=== PATIENT | male | born 1960 | race Caucasian/White ===

== ENCOUNTER 2024-10-11 15:01 | Inpatient (IN) ==
[2024-10-11] MEDS: ONDANSETRON INJ 2 MG/ML 2 ML VIAL IV STA (15:32)
[2024-10-11 15:43] LABS: Basophils # (auto) 0.02 K/uL (0.00-0.20); Basophils % (auto) 0.1 %; Eosinophils # (auto) 0.01 K/uL (0.00-0.50); Eosinophils % (auto) 0.1 %; Hematocrit (blood only) 45.8 % (42.0-52.0); Hemoglobin 15.1 g/dl (14.0-18.0); Immature Granulocytes # (auto) 0.05 K/uL (0.01-0.20); Immature Granulocytes % (auto) 0.3 %; Lymphocytes % (auto) 7.6 %; Mean Corpuscular Hemoglobin 29.5 pg (25.0-34.0); Mean Corpuscular Volume 89.6 fL (80.0-100.0); Mean Platelet Volume 10.9 fL (9.4-12.4); Monocytes # (auto) 0.83 K/uL (0.11-0.59); Monocytes % (auto) 5.3 %; Neutrophils # (auto) 13.59 K/uL (1.40-6.50); Neutrophils % (auto) 86.6 %; Platelet Count 182 K/uL (130-400); RDW Coefficient of Variation 13.5 % (11.5-14.5); RDW Standard Deviation 44.1 fL (36.4-46.3); Red Blood Count 5.11 M/uL (4.70-6.10)
[2024-10-11] MEDS: ONDANSETRON INJ 2 MG/ML 2 ML VIAL ONE (15:46)
[2024-10-11 16:08] LABS: Alanine Aminotransferase 15 U/L (7-52); Albumin Globulin Ratio 1.4 (0.9-2); Albumin Level 4.2 gm/dl (3.4-5.0); Alkaline Phosphatase 67 U/L (34-104); Anion Gap 12 (3-11); Aspartate Aminotransferase 25 U/L (13-39); Blood Urea Nitrogen 33 mg/dl (6-23); Calcium 9.6 mg/dl (8.6-10.3); Carbon Dioxide 30 mmol/L (21-32); Chloride 97 mmol/L (98-107); Globulin 2.9 gm/dl (2.5-4.0); Glucose 113 mg/dl (70-99(Fasting)); Lipase 24 U/L (11-82); Potassium 4.1 mmol/L (3.5-5.1); Sodium 139 mmol/L (136-145); Total Protein 7.1 gm/dl (6.0-8.3)
--- NOTE | 2024-10-11 16:14 | XRay Report ---
XR chest 1V portable HISTORY: 64 years-old Male pain/hiccups acute chest pain COMPARISON: 12/08/2023 TECHNIQUE: AP view of the chest FINDINGS: Cardiac silhouette is normal in size. Mild subsegmental left basilar scarring versus atelectasis. No pneumothorax or pleural effusion. Bones appear grossly intact. IMPRESSION: No acute process. ACT 112: Negative or not required by law. The above report was generated using voice recognition software. It may contain grammatical, syntax o r spelling errors. Electronically signed by: Evelio Alford M.D. 10/11/2024 4:13 PM
[2024-10-11] MEDS: FAMOTIDINE 20MG IV PUSH 20 MG/5 ML SYR IV STA (17:51)
[2024-10-11] MEDS: ACETAMINOPHEN 1,000 MG/100 ML VIAL IV STA (17:51)
[2024-10-11] MEDS: diphenhydrAMINE 50 MG/ML VIAL IV STA (17:51)
[2024-10-11] MEDS: SODIUM CHLORIDE 0.9% 500 ML IV ONE ×2 (17:51→20:37)
[2024-10-11] MEDS: METOCLOPRAMIDE HCL INJ 5 MG/ML 2 ML VIAL IV ONE (17:51)
--- NOTE | 2024-10-11 17:58 | Emergency Department Note ---
Impression & Plan Hiccups, RANDEE (acute kidney injury), S/P ureteral stent placement ED Provider Note NAME: TAHIAR OLIVER AGE: 64 SEX: M : 1960 ARRIVES VIA: Walk-In INFORMANT: Patient ED PROVIDER(S): Mark Billy MD CHIEF COMPLAINT: Hiccups PLAN: Disposition: Admit MEDICAL DECISION MAKING: The patient is a pleasant 64-year-old gentleman with a past medical history of migraine headaches, GERD, nephrolithiasis with recent outpatient right ureteral stent placement who presents to the emergency department for evaluation of ongoing intractable hiccups since his procedure yesterday. He reports that he has had poor oral intake due to the persistence of these hiccups which have not improved with any attempts at breath-holding or drinking cold water. He reports his pain and discomfort relates more to the recurrent hiccups than his stent placement yesterday. He denies any fevers, chills, cough, congestion, chest pain or shortness of breath. Of note, the patient did arrive to emergency department during time of high volume, acuity and prolonged emergency department waiting times. Critical pathways initiated from triage. On evaluation the patient is uncomfortable in no distress, afebrile with heart in the 90s and blood pressure 120/70s but respiratory rate in the upper 20s due to intractable hiccups. Abdomen is nontender. WBC 15.7 K with neutrophilia but no left shift, nonspecific. H/H and platelets within normal limits. Chemistry without metabolic acidosis. Creatinine is 2.06 consistent with RANDEE in the setting of the patient's poor oral intake. LFTs are unremarkable. Lipase is normal. Patient was treated with IV fluid hydration, IV famotidine, diphenhydramine, Reglan and had subsequent improvement in his intractable hiccups though still somewhat present. We did review his acute kidney injury and he agrees with plan for admission for further management. Case was discussed with Dr. Bearden, [facility] hospitalist who will evaluate the patient for admission. Further management per admitting team. Triage Nursing notes reviewed and agree them. Prior/external medical records reviewed Vital Signs: reviewed Differential diagnosis: Gastroenteritis, food borne illness, infections, appendicitis, diverticulitis, inflammatory bowel disease, obstruction, GI bleed, biliary pathology, volvulus, as well as other pathologies. ER treatment provided: See below. Diagnostics interpreted by me: Cardiac Monitoring: An order for continuous cardiac monitoring was placed and demonstrated normal sinus rhythm, 98 bpm, no ectopy. Laboratory studies: See below Imaging studies: See below Consultation(s): Case was discussed with Dr. Bearden, [facility] Hospitalist who will evaluate the patient for admission. HPI: The patient is a pleasant 64-year-old gentleman with a past medical history of migraine headaches, GERD, nephrolithiasis with recent outpatient right ureteral stent placement who presents to the emergency department for evaluation of ongoing intractable hiccups since his procedure yesterday. He reports that he has had poor oral intake due to the persistence of these hiccups which have not improved with any attempts at breath-holding or drinking cold water. He reports his pain and discomfort relates more to the recurrent hiccups than his stent placement yesterday. He denies any fevers, chills, cough, congestion, chest pain or shortness of breath. ROS: See above HPI for pertinent positives & negatives. A total of 10 systems reviewed and were otherwise negative. VITALS:See Below PHYSICAL EXAMINATION: GENERAL: Awake, alert, uncomfortable-appearing, intractable hiccups. Normal sinus rhythm, 90 bpm, no ectopy. HENT: Normocephalic, atraumatic. Oropharynx with dry mucous membranes and otherwise unremarkable. EYES: Normal conjunctiva. Sclera non-icteric. NECK: Supple. No nuchal rigidity. FROM. No JVD. RESPIRATORY: Clear to auscultation. CARDIAC: Regular rate, normal rhythm. Extremities warm and well perfused. Pulses equal. ABDOMEN: Soft, non-distended. No tenderness to palpation. No rebound or guarding. No masses. MUSCULOSKELETAL: Chest examination reveals no tenderness. The back is symmetrical on inspection without obvious abnormality. There is no CVA tenderness to palpation. No joint edema. LOWER EXTREMITIES: Calves are equal size bilaterally and non-tender. No edema. No discoloration. NEURO: Normal sensorium. No sensory or motor deficits noted. SKIN: No rash or jaundice noted. Mark Billy MD Past Med/Surg History Problem List (Updated 10/12/24 @ 15:34 by Mark Billy MD) S/P ureteral stent placement (Acute) History of ureteroscopy Hiccups (Acute) RANDEE (acute kidney injury) (Acute) Elevated PSA Nephrolithiasis BPH w urinary obs/LUTS Cephalgia (Acute) Migraine (Chronic) Headache (Acute) History of appendectomy (Chronic) Medical History (Updated 10/12/24 @ 12:53 by Giulia Luna PA-C) TMJ (temporomandibular joint disorder) "I have had a problem with keeping my mouth open for long periods of time. It locks" Heart burn Hx of hepatitis "mild kind as a child - no traces in my blood" unsure of type History of anemia Hx of seizure disorder as a child - no problems since Cough chronic - started 10/2023 - has completed testing / no current answers or dx Nephrolithiasis Migraines BPH (benign prostatic hyperplasia) Surgical History (Updated 10/12/24 @ 15:34 by Mark Billy MD) Hx of wisdom tooth extraction Hx of left knee surgery Hx of colonoscopy History of appendectomy Family History Other No significant family history Social History Smoking Status: Never smoker Second Hand Exposure: No; Do You Dip or Chew Tobacco: No; Hx Alcohol Use: No Hx Substance Use: No Preferred Language: Kazakh Communication Ability: Effective Business Asst Required: No Beliefs That Will Affect Care: None marital status: Current Living Situation: Spouse current occupational status: employed 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 Feels Safe at Home: Yes Safety Concerns: Feels Safe At This Time Assistive Devices: Glasses Allergies Allergies Allergy/AdvReac Type Severity Reaction Status Date / Time No Known Allergies Allergy Verified 10/10/24 10:31 Home Meds Home Medications Medication Instructions Recorded Confirmed sumatriptan succinate 100 mg 100 mg PO DAILY PRN Migraine 01/09/21 10/11/24 tablet (Imitrex) Headache galcanezumab-gnlm 120 mg/mL 120 mg subcut MONTHLY 12/08/23 10/11/24 subcutaneous pen injector (Emgality Pen) promethazine-DM 6.25 mg-15 mg/5 mL 5 ml PO QID PRN Cough 12/08/23 10/11/24 oral syrup Saccharomyces boulardii 250 mg 250 mg PO DAILY PRN Upset Stomach 10/03/24 10/11/24 capsule (Florastor) aspirin 325 mg tablet 325 mg PO DAILY 10/03/24 10/11/24 tamsulosin 0.4 mg capsule (Flomax) 0.4 mg PO HS 10/03/24 10/11/24 omeprazole 40 mg capsule,delayed 40 mg PO DAILYBB 10/11/24 10/11/24 release Previous Rx's Medication Instructions Recorded ciprofloxacin HCl 500 mg tablet 500 mg PO Q12H #6 tabs 10/10/24 (Cipro) oxycodone-acetaminophen 7.5 mg-325 1 tab PO Q8H PRN pain 3 days #7 10/10/24 mg tablet (Percocet) tabs phenazopyridine 200 mg tablet 200 mg PO Q8H PRN pain #10 tabs 10/10/24 (Pyridium) Results & Data (ED) Vital Signs Vital Signs - 24 hr 10/11/24 15:33 10/11/24 16:48 10/11/24 17:03 Pulse Rate 83 80 83 Pulse Rate [Apical] Respiratory Rate 17 15 17 Blood Pressure [Left Arm] Blood Pressure Mean [Left Arm] Pulse Oximetry Oxygen Delivery Method 10/11/24 18:05 10/11/24 19:15 10/11/24 20:03 Pulse Rate 98 H Pulse Rate [Apical] 83 97 H Respiratory Rate 20 18 Blood Pressure [Left Arm] 139/80 Blood Pressure Mean [Left Arm] 99 Pulse Oximetry 98 93 Oxygen Delivery Method Room Air Laboratory Data Attestation: I reviewed the patient's lab results. 10/12/24 06:59 10/12/24 06:59 Lab Results 10/11/24 10/11/24 Range/Units 15:17 20:39 WBC 15.70 H (4.8-10.8) K/ul RBC 5.11 (4.70-6.10) M/uL Hgb 15.1 (14.0-18.0) g/dl Hct 45.8 (42.0-52.0) % MCV 89.6 (80.0-100.0) fL MCH 29.5 (25.0-34.0) pg MCHC 33.0 (32.0-36.0) g/dL RDW Std Deviation 44.1 (36.4-46.3) fL RDW Coeff of Homero 13.5 (11.5-14.5) % Plt Count 182 (130-400) K/uL MPV 10.9 (9.4-12.4) fL Immature Gran % (Auto) 0.3 % Neut % (Auto) 86.6 % Lymph % (Auto) 7.6 % [place] % (Auto) 5.3 % Eos % (Auto) 0.1 % Baso % (Auto) 0.1 % Neut # (Auto) 13.59 H (1.40-6.50) K/uL Lymph # (Auto) 1.20 (1.20-3.40) K/uL [place] # (Auto) 0.83 H (0.11-0.59) K/uL Eos # (Auto) 0.01 (0.00-0.50) K/uL Baso # (Auto) 0.02 (0.00-0.20) K/uL Immature Gran # (Auto) 0.05 (0.01-0.20) K/uL Sodium 139 (136-145) mmol/L Potassium 4.1 (3.5-5.1) mmol/L Chloride 97 L (98-107) mmol/L Carbon Dioxide 30 (21-32) mmol/L Anion Gap 12 H (3-11) BUN 33 H (6-23) mg/dl Creatinine 2.06 H (0.6-1.4) mg/dl Est Cr Clr Drug Dosing Not Reportable eGFR 35.75 BUN/Creatinine Ratio 16.0 (10-20) Glucose 113 H (70-99(Fasting)) mg/dl Estimat Average Glucose 111 mg/dl Hemoglobin A1c 5.5 (4.5-5.6) % Calcium 9.6 (8.6-10.3) mg/dl Magnesium 2.2 (1.7-2.4) mg/dl Total Bilirubin 1.0 (0.2-1.0) mg/dl AST 25 (13-39) U/L ALT 15 (7-52) U/L Alkaline Phosphatase 67 (34-104) U/L Total Protein 7.1 (6.0-8.3) gm/dl Albumin 4.2 (3.4-5.0) gm/dl Globulin 2.9 (2.5-4.0) gm/dl Albumin/Globulin Ratio 1.4 (0.9-2) Lipase 24 (11-82) U/L Administered Medications Acetaminophen (Acetaminophen 500 Mg Tab) 1,000 mg PO Q8H [facility] Stop: 11/11/24 13:59 Last Admin: 10/12/24 14:10 Dose: 1,000 mg Documented By: SYLVIA Heparin Sodium (Porcine) (Heparin Sod 5,000 Unit/0.5 Ml Vial) 5,000 units SQ Q8 LION Stop: 11/11/24 13:59 Last Admin: 10/12/24 14:57 Dose: Not Given Documented By: SYLVIA Hydromorphone HCl (Hydromorphone Inj 0.5 Mg/0.5 Ml Syr) 0.5 mg IV Q4H PRN PRN Reason: Pain Stop: 10/25/24 23:06 Last Admin: 10/12/24 10:38 Dose: 0.5 mg Documented By: SYLVIA Ceftriaxone Sodium (Rocephin) 2,000 mg in 50 mls @ 100 mls/hr IV Q24H [facility] Stop: 10/22/24 04:59 Last Infusion: 10/12/24 06:14 Dose: Infused Documented By: Admin: 10/12/24 05:28 Dose: 100 mls/hr Documented By: ASAF Lorazepam (Lorazepam 0.5 Mg Tab) 0.5 mg PO TID PRN PRN Reason: Anxiety Stop: 11/10/24 21:39 Last Admin: 10/12/24 09:33 Dose: 0.5 mg Documented By: SYLVIA Metoclopramide HCl (Metoclopramide Hcl Inj 5 Mg/Ml 2 Ml Vial) 5 mg IV Q6H PRN PRN Reason: Nausea Stop: 11/10/24 23:29 Last Admin: 10/12/24 09:34 Dose: 5 mg Documented By: SYLVIA Oxycodone HCl (Oxycodone Hcl Ir 5 Mg Tab (Immediate Release)) 5 mg PO Q4H PRN PRN Reason: Pain Stop: 10/25/24 23:06 Last Admin: 10/12/24 12:16 Dose: 5 mg Documented By: Admin: 10/12/24 03:14 Dose: 5 mg Documented By: ASAF Pantoprazole Sodium (Pantoprazole 40 Mg Tab) 40 mg PO DAILYBB [facility] Stop: 11/11/24 06:29 Last Admin: 10/12/24 05:28 Dose: 40 mg Documented By: ASAF Sumatriptan Succinate (Sumatriptan Succinate 100 Mg Tab) 100 mg PO DAILY PRN PRN Reason: Migraine Headache Stop: 11/11/24 09:19 Last Admin: 10/12/24 14:28 Dose: 100 mg Documented By: Admin: 10/12/24 10:36 Dose: 100 mg Documented By: SYLVIA Discontinued Medications Baclofen (Baclofen 10 Mg Tab) 5 mg PO NOW STA Stop: 10/11/24 23:46 Last Admin: 10/12/24 00:04 Dose: 5 mg Documented By: ASAF Diphenhydramine HCl (Diphenhydramine 50 Mg/Ml Vial) 12.5 mg IV NOW STA Stop: 10/11/24 17:40 Last Admin: 10/11/24 17:51 Dose: 12.5 mg Documented By: FINA Sodium Chloride (Nss) 500 mls @ 999 mls/hr IV .Q31M ONE Stop: 10/11/24 18:09 Last Infusion: 10/11/24 18:24 Dose: Infused Documented By: Admin: 10/11/24 17:51 Dose: 999 mls/hr Documented By: FINA Famotidine (Pepcid 20mg Iv Push) 20 mg in 5 mls @ 2.5 mls/min IV NOW STA Stop: 10/11/24 17:40 Last Admin: 10/11/24 17:51 Dose: 2.5 mls/min Documented By: FINA Acetaminophen (Ofirmev) 1,000 mg in 100 mls @ 400 mls/hr IV NOW STA Stop: 10/11/24 17:57 Last Infusion: 10/11/24 18:24 Dose: Infused Documented By: Admin: 10/11/24 17:51 Dose: 400 mls/hr Documented By: FINA Sodium Chloride (Nss) 500 mls @ 999 mls/hr IV .Q31M ONE Stop: 10/11/24 20:55 Last Admin: 10/11/24 20:37 Dose: Not Given Documented By: RICO Lactated Ringer's (Lr) 1,000 mls @ 200 mls/hr IV .Q5H ONE Stop: 10/12/24 01:34 Last Infusion: 10/12/24 07:09 Dose: Infused Documented By: Admin: 10/11/24 21:08 Dose: 100 mls/hr Documented By: RICO Lactated Ringer's (Lr) 1,000 mls @ 100 mls/hr IV .Q10H ONE Stop: 10/12/24 12:59 Last Infusion: 10/12/24 13:47 Dose: Infused Documented By: Infusion: 10/12/24 10:05 Dose: 100 mls/hr Documented By: Infusion: 10/12/24 09:30 Dose: 0 mls/hr Documented By: Admin: 10/12/24 03:09 Dose: 100 mls/hr Documented By: ASAF Metoclopramide HCl (Metoclopramide Hcl Inj 5 Mg/Ml 2 Ml Vial) 5 mg IV ONE ONE Stop: 10/11/24 17:40 Last Admin: 10/11/24 17:51 Dose: 5 mg Documented By: FINA Metoclopramide HCl (Metoclopramide Hcl Inj 5 Mg/Ml 2 Ml Vial) 5 mg IV ONE STA Stop: 10/11/24 21:46 Last Admin: 10/11/24 23:01 Dose: 5 mg Documented By: ASAF Morphine Sulfate (Morphine Sulfate 2 Mg/Ml Carp) 2 mg IV Q2H PRN PRN Reason: pain Stop: 10/25/24 20:49 Last Admin: 10/11/24 21:02 Dose: 2 mg Documented By: RICO Ondansetron HCl (Ondansetron Inj 2 Mg/Ml 2 Ml Vial) 4 mg IV NOW STA Stop: 10/11/24 15:32 Last Admin: 10/11/24 15:32 Dose: 4 mg Documented By: FINA Ondansetron HCl (Ondansetron Inj 2 Mg/Ml 2 Ml Vial) Confirm Administered Dose 4 mg .ROUTE .STK-MED ONE Stop: 10/11/24 15:32 Last Admin: 10/11/24 15:46 Dose: Not Given Documented By: FINA Sucralfate (Sucralfate 1 Gm/10 Ml Udc) 1 gm PO NOW STA Stop: 10/11/24 20:26 Last Admin: 10/11/24 20:35 Dose: 1 gm Documented By: RICO Sumatriptan Succinate (Sumatriptan Succinate 50 Mg Tab) 50 mg PO NOW STA Stop: 10/12/24 00:11 Last Admin: 10/12/24 00:29 Dose: 50 mg Documented By: HJ Imaging Data Radiologist's Impression: Chest X-Ray 10/11/24 15:43 XR chest 1V portable HISTORY: 64 years-old Male pain/hiccups acute chest pain COMPARISON: 12/08/2023 TECHNIQUE: AP view of the chest FINDINGS: Cardiac silhouette is normal in size. Mild subsegmental left basilar scarring versus atelectasis. No pneumothorax or pleural effusion. Bones appear grossly intact. IMPRESSION: No acute process. ACT 112: Negative or not required by law. The above report was generated using voice recognition software. It may contain grammatical, syntax or spelling errors. Electronically signed by: Evelio lAford M.D. 10/11/2024 4:13 PM Discharge Plan Visit Data Chief Complaint: Illness Stated Complaint: HICCUPS, SURG YESTERDAY, KIDNEY STONE, MIGRAINE ED Provider: Mark Billy Discharge Problem: Hiccups, RANDEE (acute kidney injury), S/P ureteral stent placement Patient Disposition: Admitted As Inpatient Discharge Instructions Interventions: ED Discharge Assessment Last Done: 10/11/24 21:55
[2024-10-11] MEDS: SUCRALFATE 1 GM/10 ML UDC PO STA (20:35)
--- NOTE | 2024-10-11 20:41 | History & Physical Report ---
Date of Service October 11, 2024 Assessment & Plan (1) RANDEE (acute kidney injury): (2) Hiccups: (3) History of ureteroscopy: (4) Nephrolithiasis: (5) BPH w urinary obs/LUTS: (6) Elevated PSA: (7) Migraine: Plan: HPI, ROS, PE completed by myself, Solange Toro PA-C Assessment and Plan per Dr Bearden. See addendum History of Present Illness Chief Complaint: hiccups Primary Care Provider: Xavi Perkins MD Patient is 64 year old male with PMH BPH, elevated PSA, kidney stones, migraine VILLALBA on Emgality presented to ER with c/o hiccups and right flank pain. On 10/10/2024 s/p cystoscopy, right ureteronephroscopy, laser destruction stone insertion stent by Dr. Palacio. Patient states postop had hiccups which caused increased right flank pain. He was also having dysuria. Patient reports discharged home. He reports hiccups continued and every time he hiccups it causes sharp pain to right flank and right lower quadrant pain and still having dysuria. Reports pain not controlled with oxycodone. Patient states when he hiccups so many times he feels like he can't catch his breath. He reports hematuria has started to slow since yesterday. Patient reports having chills but did not recorded temperature at home.Reports is drinking fluids however has not been eating past 24 hours. States nausea without vomiting. Per outpatient chart review had telemedicine PCP visit on 09/23/24 for cough x 2 weeks and was treated with prednisone taper in which he reports cough improved. Denies fever/chills, diaphoresis, diarrhea, VILLALBA, dizziness, CP, palpitations, rhinorrhea, extremity weakness, extremity edema, rashes. Allergies Allergy/AdvReac Type Severity Reaction Status Date / Time No Known Allergies Allergy Verified 10/10/24 10:31 Home Medications Medication Instructions Recorded Confirmed Type sumatriptan succinate 100 mg 100 mg PO DAILY PRN Migraine 01/09/21 10/11/24 History tablet (Imitrex) Headache galcanezumab-gnlm 120 mg/mL 120 mg subcut MONTHLY 12/08/23 10/11/24 History subcutaneous pen injector (Emgality Pen) promethazine-DM 6.25 mg-15 mg/5 mL 5 ml PO QID PRN Cough 12/08/23 10/11/24 History oral syrup Saccharomyces boulardii 250 mg 250 mg PO DAILY PRN Upset Stomach 10/03/24 10/11/24 History capsule (Florastor) aspirin 325 mg tablet 325 mg PO DAILY 10/03/24 10/11/24 History tamsulosin 0.4 mg capsule (Flomax) 0.4 mg PO HS 10/03/24 10/11/24 History ciprofloxacin HCl 500 mg tablet 500 mg PO Q12H #6 tabs 10/10/24 10/11/24 Rx (Cipro) oxycodone-acetaminophen 7.5 mg-325 1 tab PO Q8H PRN pain 3 days #7 10/10/24 10/11/24 Rx mg tablet (Percocet) tabs phenazopyridine 200 mg tablet 200 mg PO Q8H PRN pain #10 tabs 10/10/24 10/11/24 Rx (Pyridium) omeprazole 40 mg capsule,delayed 40 mg PO DAILYBB 10/11/24 10/11/24 History release Past Med/Surg History Problem List History of ureteroscopy Hiccups (Acute) RANDEE (acute kidney injury) (Acute) Encounter for pre-operative examination Elevated PSA Nephrolithiasis BPH w urinary obs/LUTS Cephalgia (Acute) Migraine (Chronic) Headache (Acute) History of appendectomy (Chronic) Medical History TMJ (temporomandibular joint disorder) "I have had a problem with keeping my mouth open for long periods of time. It locks" Heart burn Hx of hepatitis "mild kind as a child - no traces in my blood" unsure of type History of anemia Hx of seizure disorder as a child - no problems since Cough chronic - started 10/2023 - has completed testing / no current answers or dx Nephrolithiasis Migraines BPH (benign prostatic hyperplasia) Surgical History Hx of wisdom tooth extraction Hx of left knee surgery Hx of colonoscopy History of appendectomy Family History Other No significant family history Social History Smoking Status: Never smoker Second Hand Exposure: No; Do You Dip or Chew Tobacco: No; Hx Alcohol Use: No Hx Substance Use: No Preferred Language: Slovenian Communication Ability: Effective Funeral Arranger Required: No Beliefs That Will Affect Care: None marital status: Current Living Situation: Spouse current occupational status: employed 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 no hiccpups at time of exam CV: RRR, no murmur, no pretibial edema Abd: normal BS, soft,+tenderness palpation right flank, RLQ Ext: no cyanosis, no calf tenderness Neuro: A&O x 3, no focal deficits noted, somewhat anxious affect Skin: warm, sweaty Results & Data Results & Data Vital Signs (Past 12 Hours) Vital Signs Temp Pulse Pulse Resp BP BP Pulse Ox 10/11/24 20:03 97 H 18 139/80 93 10/11/24 19:15 98 H 10/11/24 18:05 83 20 98 10/11/24 17:03 83 17 10/11/24 16:48 80 15 10/11/24 15:33 83 17 10/11/24 15:15 82 16 10/11/24 15:15 78 10/11/24 15:04 36.9 C 94 H 28 H 129/79 97 O2 Del Method 10/11/24 20:03 10/11/24 19:15 10/11/24 18:05 Room Air 10/11/24 17:03 10/11/24 16:48 10/11/24 15:33 10/11/24 15:15 10/11/24 15:15 10/11/24 15:04 Room Air Laboratory Results Short CBC 10/11/24 Range/Units 15:17 WBC 15.70 H (4.8-10.8) K/ul Hgb 15.1 (14.0-18.0) g/dl Hct 45.8 (42.0-52.0) % Plt Count 182 (130-400) K/uL BMP 10/11/24 15:17 Sodium 139 Potassium 4.1 Chloride 97 L Carbon Dioxide 30 BUN 33 H Creatinine 2.06 H Glucose 113 H Calcium 9.6 Liver Function 10/11/24 Range/Units 15:17 Total Bilirubin 1.0 (0.2-1.0) mg/dl AST 25 (13-39) U/L ALT 15 (7-52) U/L Alkaline Phosphatase 67 (34-104) U/L Albumin 4.2 (3.4-5.0) gm/dl Diagnostic Findings Chest X-Ray 10/11/24 15:43 XR chest 1V portable HISTORY: 64 years-old Male pain/hiccups acute chest pain COMPARISON: 12/08/2023 TECHNIQUE: AP view of the chest FINDINGS: Cardiac silhouette is normal in size. Mild subsegmental left basilar scarring versus atelectasis. No pneumothorax or pleural effusion. Bones appear grossly intact. IMPRESSION: No acute process. ACT 112: Negative or not required by law. The above report was generated using voice recognition software. It may contain grammatical, syntax or spelling errors. Electronically signed by: Evelio Alford M.D. 10/11/2024 4:13 PM Supervising Physician Co-Signing Physician Notes IM ATTENDING : Patient seen and examined. History obtained from patient and records. Concur with salient points upon review of preceding documentation by Ms. Solange Toro PA-C. I take responsibility for plan of care below. FINAL ASSESSMENT AND PLAN as follows : ARF, AGMA secondary to decreased p.o. intake secondary to postop hiccups History kidney stone procedure Rule out obstruction given vague abdominal/flank pain complaints Hematuria secondary to above, hemoglobin currently stable Migraine, acute attack secondary to illness PUD, on PPI Hyperglycemia rule out DM Medical admission Baseline UA, monitor creatinine response to IVF CT abdomen pelvis re: ARF/abdominal/flank pain Urology postop eval as per patient request Check hemoglobin A1c DVT prophylaxis. SCDs Re: Hematuria Full code Text document was generated using [employer] voice recognition software. It may contain grammatical or spelling errors. Kindly contact undersigned for clarification of any documentation item in question. (7) Migraine Intractability: intractable Migraine type: unspecified Status migrainosus presence: with status migrainosus Qualified Code(s): G43.911 - Migraine, unspecified, intractable, with status migrainosus
[2024-10-11 20:55] LABS: Magnesium 2.2 mg/dl (1.7-2.4)
[2024-10-11] MEDS: MoRPHine SULFATE 2 MG/ML CARP IV PRN (21:02)
[2024-10-11] MEDS: LACTATED RINGER'S 1,000 ML IV ONE (21:08)
[2024-10-11 21:36] LABS: Estimated Average Glucose 111 mg/dl; Hemoglobin A1C 5.5 % (4.5-5.6)
[2024-10-11] MEDS ORDERED: ACETAMINOPHEN 325 MG TAB PO PRN (23:00)
[2024-10-11] MEDS: METOCLOPRAMIDE HCL INJ 5 MG/ML 2 ML VIAL IV STA (23:01)
[2024-10-12] MEDS: BACLOFEN 10 MG TAB PO STA (00:04)
[2024-10-12] MEDS: SUMAtriptan succinate 50 MG TAB PO STA (00:29)
--- NOTE | 2024-10-12 03:05 | CT Scan Report ---
Exam(s): CT ABDOMEN + PELVIS Without Contrast EXAM: CT Abdomen and Pelvis Without Intravenous Contrast CLINICAL HISTORY: Reason for exam: abd pain. TECHNIQUE: Axial computed tomography images of the abdomen and pelvis without intravenous contrast. CTDI is 25 mGy and DLP is 1290 mGy-cm. Automated exposure control was utilized for the study. A dose lowering technique was utilized adhering to the principles of ALARA. COMPARISON: No relevant prior studies available. FINDINGS: Limitations: Limited evaluation in the absence of contrast. Lung bases: Mild dependent scarring at the lung bases. No consolidation. ABDOMEN: Liver: Unremarkable. Gallbladder and bile ducts: Unremarkable. No calcified stones. No ductal dilation. Pancreas: Unremarkable. No ductal dilation. Spleen: Unremarkable. No splenomegaly. Adrenals: Unremarkable. No mass. Kidneys and ureters: Patient status post right double-J ureteral stent with proximal coil in the right renal pelvis and distal coil in the bladder. Gas noted in the right renal collecting system and within the bladder which may be postprocedural in nature. Additional prominent right perinephric and periureteral stranding noted. Findings may be postprocedural in nature. Infection also possible. Stomach and bowel: Unremarkable. No obstruction. No mucosal thickening. PELVIS: Appendix: No findings to suggest acute appendicitis. Bladder: Within the bladder as described. Reproductive: Prostatic calcifications with prostatomegaly. ABDOMEN and PELVIS: Intraperitoneal space: Unremarkable. No free air. No significant fluid collection. Bones/joints: Degenerative changes in the spine. No acute fracture. No dislocation. Soft tissues: Left inguinal hernia containing fat. Umbilical hernia containing fat. Vasculature: Unremarkable. No abdominal aortic aneurysm. Lymph nodes: Unremarkable. No enlarged lymph nodes. IMPRESSION: 1. Limited evaluation in the absence of contrast. 2. Patient status post right double-J ureteral stent with proximal coil in the right renal pelvis and distal coil in the bladder. Gas noted in the right renal collecting system and within the bladder which may be postprocedural in nature. Additional prominent right perinephric and periureteral stranding noted. Findings may be postprocedural in nature. Infection also possible. 3. No other acute findings. 4. Incidental findings as described. Electronically signed by: Vamsi Mcgregor MD 10/12/24 03:04 AM
[2024-10-12] MEDS: LACTATED RINGER'S 1,000 ML IV ONE (03:09)
[2024-10-12] MEDS: oxyCODONE HCL IR 5 MG TAB (IMMEDIATE RELEASE) PO PRN (03:14)
[2024-10-12 03:36] LABS: Appearance Urine Cloudy (Clear)
[2024-10-12 03:43] LABS: Specific Gravity Urine 1.022 (1.000-1.030)
[2024-10-12 03:49] LABS: RBC Urine >20 /hpf (0-2); WBC Urine >50 /hpf (0-5)
[2024-10-12 03:50] LABS: Bacteria Urine None Seen (None Seen)
[2024-10-12] MEDS: PANTOprazole 40 MG TAB PO SCH (05:28)
[2024-10-12] MEDS: cefTRIAXone SODIUM 2,000 MG/50 ML BAG IV SCH (05:28)
[2024-10-12 07:24] LABS: HCO3 VBG 29 mmol/L; Oxygen Saturation VBG 62.4 %; PCO2 VBG 52 mmHg (38-50); PO2 VBG 36 mmHg; pH VBG 7.36 (7.36-7.41)
[2024-10-12 07:26] LABS: Basophils # (auto) 0.03 K/uL (0.00-0.20); Basophils % (auto) 0.2 %; Eosinophils # (auto) 0.03 K/uL (0.00-0.50); Eosinophils % (auto) 0.2 %; Hematocrit (blood only) 38.8 % (42.0-52.0); Hemoglobin 12.3 g/dl (14.0-18.0); Immature Granulocytes # (auto) 0.32 K/uL (0.01-0.20); Lymphocytes # (auto) 1.56 K/uL (1.20-3.40); Lymphocytes % (auto) 9.6 %; Mean Corpuscular Hemoglobin 29.6 pg (25.0-34.0); Mean Corpuscular Hgb Conc 31.7 g/dL (32.0-36.0); Mean Corpuscular Volume 93.5 fL (80.0-100.0); Mean Platelet Volume 10.9 fL (9.4-12.4); Monocytes # (auto) 1.31 K/uL (0.11-0.59); Monocytes % (auto) 8.1 %; Neutrophils # (auto) 12.96 K/uL (1.40-6.50); Neutrophils % (auto) 79.9 %; Platelet Count 150 K/uL (130-400); RDW Coefficient of Variation 13.5 % (11.5-14.5); RDW Standard Deviation 46.3 fL (36.4-46.3); Red Blood Count 4.15 M/uL (4.70-6.10); White Blood Count 16.21 K/ul (4.8-10.8)
--- NOTE | 2024-10-12 07:37 | Urology Consultation ---
Date of Consultation October 12, 2024 Assessment & Plan (1) Hiccups: (2) RANDEE (acute kidney injury): (3) Nephrolithiasis: Plan 64-year-old male who was admitted due to hiccups. He is status post right ureteroscopy with stent placement with Dr. Palacio on 10/10/2024. No urologic intervention necessary. Reviewed CT scan and stent is appropriate position. Not surprising to see air in the collecting system and bladder given recent instrumentation Now that creatinine has normalized recommend IV Toradol 15 mg every 6 hours to help with stent pain which will hopefully in turn help with his hiccups Defer to primary team for additional medications to control hiccups Follow-up cultures, treat accordingly Urology to follow peripherally History of Present Illness Attending Physician: Raj Jasmine MD History of Present Illness 64-year-old male who was admitted due to hiccups. He is status post right ureteroscopy with stent placement with Dr. Palacio on 10/10/2024. He is currently afebrile with stable vitals. Labs showed leukocytosis of 16.2, creatinine of 2.06 yesterday and a urinalysis that showed 50+ leukocytes but no other signs of infection. He did have a CT scan of the abdomen and pelvis performed yesterday which I independently reviewed this shows a stent in appropriate position with some air in the proximal ureter which is not unexpected. There is also air in the bladder which is consistent with a previous procedure. Creatinine has normalized to 1.34 today. Patient reporting hiccups, intermittent right flank pain and a migraine. He is voiding spontaneously. Allergies Allergy/AdvReac Type Severity Reaction Status Date / Time No Known Allergies Allergy Verified 10/10/24 10:31 Home Medications Medication Instructions Recorded Confirmed Type sumatriptan succinate 100 mg 100 mg PO DAILY PRN Migraine 01/09/21 10/11/24 History tablet (Imitrex) Headache galcanezumab-gnlm 120 mg/mL 120 mg subcut MONTHLY 12/08/23 10/11/24 History subcutaneous pen injector (Emgality Pen) promethazine-DM 6.25 mg-15 mg/5 mL 5 ml PO QID PRN Cough 12/08/23 10/11/24 History oral syrup Saccharomyces boulardii 250 mg 250 mg PO DAILY PRN Upset Stomach 10/03/24 History capsule (Florastor) aspirin 325 mg tablet 325 mg PO DAILY 10/03/24 10/11/24 History tamsulosin 0.4 mg capsule (Flomax) 0.4 mg PO HS 10/03/24 10/11/24 History ciprofloxacin HCl 500 mg tablet 500 mg PO Q12H #6 tabs 10/10/24 10/11/24 Rx (Cipro) oxycodone-acetaminophen 7.5 mg-325 1 tab PO Q8H PRN pain 3 days #7 10/10/24 10/11/24 Rx mg tablet (Percocet) tabs phenazopyridine 200 mg tablet 200 mg PO Q8H PRN pain #10 tabs 10/10/24 10/11/24 Rx (Pyridium) omeprazole 40 mg capsule,delayed 40 mg PO DAILYBB 10/11/24 10/11/24 History release Patient History Medical History TMJ (temporomandibular joint disorder) "I have had a problem with keeping my mouth open for long periods of time. It locks" Heart burn Hx of hepatitis "mild kind as a child - no traces in my blood" unsure of type History of anemia Hx of seizure disorder as a child - no problems since Cough chronic - started 10/2023 - has completed testing / no current answers or dx Nephrolithiasis Migraines BPH (benign prostatic hyperplasia) Surgical History Hx of wisdom tooth extraction Hx of left knee surgery Hx of colonoscopy History of appendectomy Family History Other No significant family history Social History Smoking Status: Never smoker Second Hand Exposure: No; Do You Dip or Chew Tobacco: No; Hx Alcohol Use: No Hx Substance Use: No Preferred Language: Turkmen Communication Ability: Effective Binder Chainstitch Required: No Beliefs That Will Affect Care: None marital status: Current Living Situation: Spouse current occupational status: employed 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 Feels Safe at Home: Yes Safety Concerns: Feels Safe At This Time Assistive Devices: Glasses Physical Exam Physical Exam: General: Alert and oriented, no acute distress HEENT: Normocephalic, mucous membranes moist Pulmonary: Nonlabored respirations Abdomen: Nondistended Extremities: Moves all 4 spontaneously Neuro: No gross deficits Skin: Warm, dry, no rashes noted Results & Data Vital Signs (Past 12 Hours) Vital Signs Temp Pulse Resp BP Pulse Ox O2 Del Method 10/12/24 07:11 37 C 89 16 115/71 92 Room Air 10/11/24 22:15 36.8 C 107 H 16 119/79 94 Room Air 10/11/24 20:03 97 H 18 139/80 93 PG Care Time/CCT Total # of Minutes Spent Total Time Spent with Patient: Total time spent is greater than 50% in coordination of care (as documented) at patient's floor/unit and/or counseling patient: Coding Level of Care Code 20816 IN/OBS CONSULT LVL 3,45M Diagnoses Hiccups R06.6 RANDEE (acute kidney injury) N17.9 Nephrolithiasis N20.0
[2024-10-12 07:44] LABS: BUN Creatinine Ratio 35.1 (10-20); Potassium 4.6 mmol/L (3.5-5.1)
[2024-10-12] MEDS ORDERED: oxyBUTYnin chloride 5 MG TAB PO PRN (08:45)
[2024-10-12] MEDS: LORazepam 0.5 MG TAB PO PRN (09:33)
[2024-10-12] MEDS: METOCLOPRAMIDE HCL INJ 5 MG/ML 2 ML VIAL IV PRN (09:34)
[2024-10-12] MEDS: SUMAtriptan succinate 100 MG TAB PO PRN (10:36)
[2024-10-12] MEDS: HYDROmorphone INJ 0.5 MG/0.5 ML SYR IV PRN (10:38)
--- NOTE | 2024-10-12 10:59 | Hospitalist Progress Note ---
Date of Service October 12, 2024 Assessment & Plan (1) History of ureteroscopy: (2) S/P ureteral stent placement: Plan: This is a 64 year old male with PMH BPH, elevated PSA, kidney stones, migraine VILLALBA on Emgality presented to ER with c/o hiccups and right flank pain. S/p cystoscopy, right ureteronephroscopy, laser destruction stone insertion stent by Dr. Palacio on 10/10/24 Since then, having hiccups which exacerbate R flank pain CT abd/pelvis: * Right double-J ureteral stent with proximal coil in the right renal pelvis and distal coil in the bladder. Gas noted in the right renal collecting system and within the bladder which may be postprocedural in nature. Additional prominent right perinephric and periureteral stranding noted. Findings may be postprocedural in nature. Infection also possible. No other acute findings. Limited without contrast Evaluated by urology - No urologic intervention necessary. Reviewed CT scan and stent is appropriate position. Air in the collecting system and bladder given recent instrumentation * Urology to follow peripherally Toradol likely to help with pain but still with RANDEE - continue gentle fluids, monitor renal function closely Continue empiric Rocephin for possible complicated UTI as above, follow urine culture Pain control, PRN Pyridium, oxybutynin for bladder related sx (3) BPH w urinary obs/LUTS: Plan: Continue Flomax (4) Migraine: Plan: Presenting with acute migraine, received Imitrex and Reglan late night with some relief, worsened pain this AM Ordered Imitrex 100mg x 1, Reglan, PRN toradol, ice for head On Engality monthly injections for prophylaxis (5) RANDEE (acute kidney injury): Plan: Improving - initial Cr 2.06 -> 1.34 this AM (baseline Cr ~0.9) Continue gentle fluids, avoid nephrotoxic agents as able Daily BMP (6) Hiccups: Plan: Continued since procedure - trial of Baclofen, reglan overnight without improvement. Trial of ativan this AM. If they persist, will trial gabapentin next updated at bedside this afternoon. DVT ppx: SQ heparin added, no planned intervention Code: FULL PCP: Gregorio Dispo: admitted med/surg Care coordinated with Dr. Jasmine. Please see addendum. I spent a total of 60 minutes coordinating, documenting, and providing care for this patient excluding time spent in the performance of separately billed services. Admission and Anticipated Discharge Date Admission Date: October 11, 2024 Supervising Physician Co-Signing Physician Notes Patient is seen and examined at bedside. Headache improved with Imitrex. Reports having ongoing hiccups causing abdominal, chest discomfort No other complaints today. On exam patient is moderately built and nourished, mild distress secondary to hiccups, normocephalic atraumatic, normal breath sounds, clear to auscultation, abdomen soft, bowel sounds heard, alert, awake, oriented, grossly no focal deficits. Acute kidney injury Postop hiccups Nephrolithiasis Rule out pyelonephritis -Patient had cystoscopy, right ureteral nephroscopy, retrograde pyelogram, ureteral dilatation, laser destruction of stone and extraction and insertion of stent by Dr. Palacio on 10/10/2024 -Urine culture pending -CT abdomen showed prominent right perinephric and periureteral stranding Appreciate urology input Empirically on Rocephin Advance diet as tolerated Trial of baclofen, Reglan, Ativan for hiccups Will consider adding gabapentin if no improvement Monitor renal function Received IV fluids I personally interviewed and examined at bedside. Patient's care is coordinated with Giulia Luna PA-C. I have reviewed the advanced practitioner's documen tation, and I agree with plan of care. Please refer to the documentation above for details of patient's presentation and for discussion of other issues. I spent a total [id number] coordinating, documenting, and providing care for this patient excluding time spent in the performance of separately billed services. Subjective Patient seen and examined in 353 bed 1. Still having acute migraine pain. Pain improved after Imitrex dose given last evening but then persisted overnight. Having hiccups which exacerbates abdominal discomfort secondary to ureteral stent placement on 10/10. Given baclofen, Reglan overnight without much improvement to hiccups. Denies any fever, chills, chest pain or shortness of breath. +Nauseated in setting of migraine. Review of Systems Review of Systems: At least ten systems reviewed and negative except as noted in the HPI. Physical Exam Physical Exam: Gen: WD/WN, NAD, resting in bed, in acute pain HEENT: Normocephalic, atraumatic, PERRL, conjunctivae moist, sclerae anicteric, mucous membranes moist Lung: Clear to Auscultation bilaterally, no wheezes/rales/rhonchi Heart: Regular rate, regular rhythm Abdomen: Soft, TTP in bandlike distribution across lower abdomen Extremities: no edema Skin: Warm, no rash Results & Data Results & Data Vital Signs (Past 12 Hours) Vital Signs Temp Pulse Resp BP Pulse Ox O2 Del Method 10/12/24 07:11 37 C 89 16 115/71 92 Room Air Laboratory Results Short CBC 10/11/24 10/12/24 Range/Units 15:17 06:59 WBC 15.70 H 16.21 H (4.8-10.8) K/ul Hgb 15.1 12.3 L (14.0-18.0) g/dl Hct 45.8 38.8 L (42.0-52.0) % Plt Count 182 150 (130-400) K/uL BMP 10/11/24 10/12/24 15:17 06:59 Sodium 139 138 Potassium 4.1 4.6 Chloride 97 L 105 Carbon Dioxide 30 28 BUN 33 H 47 H Creatinine 2.06 H 1.34 D Glucose 113 H 108 H Calcium 9.6 8.0 L Liver Function 10/11/24 Range/Units 15:17 Total Bilirubin 1.0 (0.2-1.0) mg/dl AST 25 (13-39) U/L ALT 15 (7-52) U/L Alkaline Phosphatase 67 (34-104) U/L Albumin 4.2 (3.4-5.0) gm/dl Urine 10/12/24 Range/Units 03:17 Urine Color See Comment Urine Appearance Cloudy A (Clear) Urine pH Not Reportable Ur Specific [place] 1.022 (1.000-1.030) Urine Protein Not Reportable Urine Glucose (UA) Not Reportable Diagnostic Findings Chest X-Ray 10/11/24 15:43 XR chest 1V portable HISTORY: 64 years-old Male pain/hiccups acute chest pain COMPARISON: 12/08/2023 TECHNIQUE: AP view of the chest FINDINGS: Cardiac silhouette is normal in size. Mild subsegmental left basilar scarring versus atelectasis. No pneumothorax or pleural effusion. Bones appear grossly intact. IMPRESSION: No acute process. ACT 112: Negative or not required by law. The above report was generated using voice recognition software. It may contain grammatical, syntax or spelling errors. Electronically signed by: Evelio Alford M.D. 10/11/2024 4:13 PM Abdomen/Pelvis CT 10/11/24 21:39 Exam(s): CT ABDOMEN + PELVIS Without Contrast EXAM: CT Abdomen and Pelvis Without Intravenous Contrast CLINICAL HISTORY: Reason for exam: abd pain. TECHNIQUE: Axial computed tomography images of the abdomen and pelvis without intravenous contrast. CTDI is 25 mGy and DLP is 1290 mGy-cm. Automated exposure control was utilized for the study. A dose lowering technique was utilized adhering to the principles of ALARA. COMPARISON: No relevant prior studies available. FINDINGS: Limitations: Limited evaluation in the absence of contrast. Lung bases: Mild dependent scarring at the lung bases. No consolidation. ABDOMEN: Liver: Unremarkable. Gallbladder and bile ducts: Unremarkable. No calcified stones. No ductal dilation. Pancreas: Unremarkable. No ductal dilation. Spleen: Unremarkable. No splenomegaly. Adrenals: Unremarkable. No mass. Kidneys and ureters: Patient status post right double-J ureteral stent with proximal coil in the right renal pelvis and distal coil in the bladder. Gas noted in the right renal collecting system and within the bladder which may be postprocedural in nature. Additional prominent right perinephric and periureteral stranding noted. Findings may be postprocedural in nature. Infection also possible. Stomach and bowel: Unremarkable. No obstruction. No mucosal thickening. PELVIS: Appendix: No findings to suggest acute appendicitis. Bladder: Within the bladder as described. Reproductive: Prostatic calcifications with prostatomegaly. ABDOMEN and PELVIS: Intraperitoneal space: Unremarkable. No free air. No significant fluid collection. Bones/joints: Degenerative changes in the spine. No acute fracture. No dislocation. Soft tissues: Left inguinal hernia containing fat. Umbilical hernia containing fat. Vasculature: Unremarkable. No abdominal aortic aneurysm. Lymph nodes: Unremarkable. No enlarged lymph nodes. IMPRESSION: 1. Limited evaluation in the absence of contrast. 2. Patient status post right double-J ureteral stent with proximal coil in the right renal pelvis and distal coil in the bladder. Gas noted in the right renal collecting system and within the bladder which may be postprocedural in nature. Additional prominent right perinephric and periureteral stranding noted. Findings may be postprocedural in nature. Infection also possible. 3. No other acute findings. 4. Incidental findings as described. Electronically signed by: Vamsi Mcgregor MD 10/12/24 03:04 AM (4) Migraine Intractability: intractable Migraine type: unspecified Status migrainosus presence: with status migrainosus Qualified Code(s): G43.911 - Migraine, unspecified, intractable, with status migrainosus
[2024-10-12] MEDS: ACETAMINOPHEN 500 MG TAB PO SCH (14:10)
[2024-10-12] MEDS: HEPARIN SOD 5,000 UNIT/0.5 ML VIAL SQ SCH (14:10)
[2024-10-12] MEDS: SODIUM CHLORIDE 0.9% 500 ML IV SCH (15:33)
[2024-10-12] MEDS: KETOROLAC TROMETHAMINE 10 MG TABLET PO ONE (16:06)
[2024-10-12] MEDS: GABAPENTIN 100 MG CAP PO SCH (16:11)
--- NOTE | 2024-10-12 20:02 | Communication Note ---
Date of Service: October 12, 2024 Patient still with hiccups temporarily relieved by Reglan. Initiate baclofen 3 times daily trial
[2024-10-12] MEDS: BACLOFEN 10 MG TAB PO SCH (20:18)
[2024-10-12] MEDS: KETOROLAC TROMETHAMINE 15 MG/ML VIAL IV ONE (20:18)
[2024-10-12] MEDS: METOCLOPRAMIDE HCL INJ 5 MG/ML 2 ML VIAL IV ONE (20:19)
[2024-10-12] MEDS: TAMSULOSIN HCL 0.4 MG CAP PO SCH (20:45)
[2024-10-13] MEDS: KETOROLAC TROMETHAMINE 15 MG/ML VIAL IV ONE (06:08)
[2024-10-13] MEDS: SUMAtriptan succinate 100 MG TAB PO STA (06:08)
[2024-10-13 06:18] LABS: Hemoglobin 11.6 g/dl (14.0-18.0); Mean Corpuscular Hemoglobin 29.7 pg (25.0-34.0); Mean Corpuscular Hgb Conc 31.4 g/dL (32.0-36.0); Mean Corpuscular Volume 94.9 fL (80.0-100.0); Mean Platelet Volume 10.7 fL (9.4-12.4); Platelet Count 130 K/uL (130-400); RDW Coefficient of Variation 13.7 % (11.5-14.5); RDW Standard Deviation 47.8 fL (36.4-46.3)
[2024-10-13 06:36] LABS: BUN Creatinine Ratio 23.6 (10-20); Calcium 8.4 mg/dl (8.6-10.3); Creatinine Clr Calc Pharmacy 62.3 ml/min; Magnesium 1.9 mg/dl (1.7-2.4); Potassium 4.2 mmol/L (3.5-5.1)
[2024-10-13] MEDS: POLYETHYLENE (MIRALAX) 17 GM PACK PO SCH (08:23)
--- NOTE | 2024-10-13 10:27 | Urology Progress Note ---
Date of Service October 13, 2024 Assessment & Plan (1) Hiccups: (2) S/P ureteral stent placement: (3) Nephrolithiasis: Plan 64-year-old male who was admitted due to hiccups. He is status post right ureteroscopy with stent placement with Dr. Palacio on 10/10/2024. Recommend continuing IV Toradol for pain control as needed Defer to primary team for management of hiccups Patient is stable from a urologic perspective to be discharged whenever he feels well enough to go home Urology will set up outpatient stent removal Follow-up culture and treat accordingly Urology to follow peripherally Admission and Anticipated Discharge Date Admission Date: October 11, 2024 Subjective Afebrile with stable vitals. Labs are improving. Patient is feeling better and hiccups have decreased as well as his right flank pain. He still has a fairly significant headache. Physical Exam Physical Exam: General: Alert and oriented, no acute distress HEENT: Normocephalic, mucous membranes moist Pulmonary: Nonlabored respirations Abdomen: Nondistended Extremities: Moves all 4 spontaneously Neuro: No gross deficits Skin: Warm, dry, no rashes noted Results & Data Vital Signs (Past 12 Hours) Vital Signs Temp Pulse Resp BP Pulse Ox O2 Del Method 10/13/24 07:56 36.8 C 87 16 107/64 93 Room Air PG Care Time/CCT Total # of Minutes Spent Total Time Spent with Patient: Total time spent is greater than 50% in coordination of care (as documented) at patient's floor/unit and/or counseling patient: Coding Level of Care Code 20449 SUB INP/OBS CARE 2/35MIN Diagnoses Hiccups R06.6 S/P ureteral stent placement Z96.0 Nephrolithiasis N20.0
--- NOTE | 2024-10-13 11:38 | Hospitalist Progress Note ---
Date of Service October 13, 2024 Assessment & Plan (1) History of ureteroscopy: (2) S/P ureteral stent placement: (3) BPH w urinary obs/LUTS: (4) Migraine: (5) RANDEE (acute kidney injury): (6) Hiccups: Plan 64-year-old male with a past medical history of BPH, kidney stones, migraine presented to the ED on 10/11/2024 with complaints of hiccups and right flank pain Assessment and plan: Nephrolithiasis S/p cystoscopy with retrograde pyelogram, ureteral dilation/insertion of R stent catheter 10/10 Postop hiccups Patient been having hiccups that exacerbate right flank pain since procedure Seen by urology, no acute intervention needed, stent in appropriate position Continues on IV Rocephin, urine culture pending, afebrile Baclofen initiated on 10/13 with improvement in hiccups, consider gabapentin if further intervention needed Urology will set up outpatient stent removal Hx BPH: AKInow resolved Continue Flomax, creatinine WNL, daily CMP Migraine: On Emgality monthly injections for prophylaxis Received Imitrex/Reglan with relief, reports improvement this morning Disposition: Cleared by urology, plan for ADC in the next 24-48 hours once pain is controlled/urine culture results A total of 45 minutes was spent on chart review/facilitating plan of care/discussion with consultants/reviewing diagnostic data Full code DVT prophylaxis: Heparin subcu Admission and Anticipated Discharge Date Admission Date: October 11, 2024 Supervising Physician Co-Signing Physician Notes Patient is seen and examined at bedside. Hiccups much improved. Still has bandlike lower abdominal pain. Prefers to continue liquid diet for now. On exam patient is moderately built and nourished, mild distress secondary to hiccups, normocephalic atraumatic, normal breath sounds, clear to auscultation, abdomen soft, bowel sounds heard, alert, awake, oriented, grossly no focal deficits. Acute kidney injury Post op hiccups Nephrolithiasis Rule out pyelonephritis -Patient had cystoscopy, right ureteral nephroscopy, retrograde pyelogram, ureteral dilatation, laser destruction of stone and extraction and insertion of stent by Dr. Palacio on 10/10/2024 -Urine culture negative to date -CT abdomen showed prominent right perinephric and periureteral stranding Appreciate urology input Empirically on Rocephin Advance diet as tolerated Trial of baclofen, Reglan, Ativan for hiccups Hiccups improving Monitor renal function Received IV fluids Continue current management Renal function stable I personally interviewed and examined at bedside. Patient's care is coordinated with Bran Dunaway PA-C. I have reviewed the advanced practitioner's documentation, and I agree with plan of care. Please refer to the documentation above for details of patient's presentation and for discussion of other issues. I spent a total [id number] coordinating, documenting, and providing care for this patient excluding time spent in the performance of separately billed services. Subjective Patient seen and examined. No apparent distress. Reports his pain is better controlled today. His hiccups have also improved. He denies any chest pain/shortness of breath. Reports no issues voiding. Reports baclofen helped with hiccups. Review of Systems Review of Systems: All systems reviewed & are unremarkable except as noted in HPI & below Physical Exam Constitutional: WD/WN, vitals as above Eyes: PERRL, conjunctivae normal, anicteric sclerae ENMT: external ear and nose normal, oropharynx normal Neck: trachea midline, no thyromegaly Respiratory: normal respiratory effort, lungs clear to auscultation Cardiovascular: RRR, no murmur, no edema Gastrointestinal (Abdomen): normal bowel sounds, soft, nontender, no hepatosplenomegaly (Claribel-colored urine) Musculoskeletal: no cyanosis or clubbing, extremities motor strength 5/5 Skin: no rashes, warm and dry Neurologic: PERRL, EOMI, accommodation nl, no face palsy, no dysarthria Lymphatic: no cervical or axillary lymphadenopathy Results & Data Results & Data Vital Signs (Past 12 Hours) Vital Signs Temp Pulse Resp BP Pulse Ox O2 Del Method 10/13/24 07:56 36.8 C 87 16 107/64 93 Room Air Diagnostic Findings Laboratory Results WBC 10.90 K/ul (4.8-10.8) H 10/13/24 05:57 RBC 3.90 M/uL (4.70-6.10) L 10/13/24 05:57 Hgb 11.6 g/dl (14.0-18.0) L 10/13/24 05:57 Hct 37.0 % (42.0-52.0) L 10/13/24 05:57 MCV 94.9 fL (80.0-100.0) 10/13/24 05:57 MCH 29.7 pg (25.0-34.0) 10/13/24 05:57 MCHC 31.4 g/dL (32.0-36.0) L 10/13/24 05:57 RDW Std Deviation 47.8 fL (36.4-46.3) H 10/13/24 05:57 RDW Coeff of Homero 13.7 % (11.5-14.5) 10/13/24 05:57 Plt Count 130 K/uL (130-400) 10/13/24 05:57 MPV 10.7 fL (9.4-12.4) 10/13/24 05:57 Immature Gran % (Auto) 2.0 % 10/12/24 06:59 Neut % (Auto) 79.9 % 10/12/24 06:59 Lymph % (Auto) 9.6 % 10/12/24 06:59 [place] % (Auto) 8.1 % 10/12/24 06:59 Eos % (Auto) 0.2 % 10/12/24 06:59 Baso % (Auto) 0.2 % 10/12/24 06:59 Neut # (Auto) 12.96 K/uL (1.40-6.50) H 10/12/24 06:59 Lymph # (Auto) 1.56 K/uL (1.20-3.40) 10/12/24 06:59 Spencer # (Auto) 1.31 K/uL (0.11-0.59) H 10/12/24 06:59 Eos # (Auto) 0.03 K/uL (0.00-0.50) 10/12/24 06:59 Baso # (Auto) 0.03 K/uL (0.00-0.20) 10/12/24 06:59 Immature Gran # (Auto) 0.32 K/uL (0.01-0.20) H 10/12/24 06:59 VBG pH 7.36 (7.36-7.41) 10/12/24 06:59 VBG pCO2 52 mmHg (38-50) H 10/12/24 06:59 VBG pO2 36 mmHg 10/12/24 06:59 VBG HCO3 29 mmol/L 10/12/24 06:59 VBG O2 Saturation 62.4 % 10/12/24 06:59 VBG Base Excess 3.0 mEq/L 10/12/24 06:59 Sodium 140 mmol/L (136-145) 10/13/24 05:57 Potassium 4.2 mmol/L (3.5-5.1) 10/13/24 05:57 Chloride 109 mmol/L (98-107) H 10/13/24 05:57 Carbon Dioxide 26 mmol/L (21-32) 10/13/24 05:57 Anion Gap 5 (3-11) 10/13/24 05:57 BUN 30 mg/dl (6-23) H 10/13/24 05:57 Creatinine 1.27 mg/dl (0.6-1.4) 10/13/24 05:57 Est Cr Clr Drug Dosing 62.3 ml/min 10/13/24 05:57 eGFR 63.88 10/13/24 05:57 BUN/Creatinine Ratio 23.6 (10-20) H 10/13/24 05:57 Glucose 97 mg/dl (70-99(Fasting)) 10/13/24 05:57 Estimat Average Glucose 111 mg/dl 10/11/24 20:39 Hemoglobin A1c 5.5 % (4.5-5.6) 10/11/24 20:39 Calcium 8.4 mg/dl (8.6-10.3) L 10/13/24 05:57 Magnesium 1.9 mg/dl (1.7-2.4) 10/13/24 05:57 Total Bilirubin 1.0 mg/dl (0.2-1.0) 10/11/24 15:17 AST 25 U/L (13-39) 10/11/24 15:17 ALT 15 U/L (7-52) 10/11/24 15:17 Alkaline Phosphatase 67 U/L (34-104) 10/11/24 15:17 Total Protein 7.1 gm/dl (6.0-8.3) 10/11/24 15:17 Albumin 4.2 gm/dl (3.4-5.0) 10/11/24 15:17 Globulin 2.9 gm/dl (2.5-4.0) 10/11/24 15:17 Albumin/Globulin Ratio 1.4 (0.9-2) 10/11/24 15:17 Lipase 24 U/L (11-82) 10/11/24 15:17 Urine Color See Comment 10/12/24 03:17 Urine Appearance Cloudy (Clear) A 10/12/24 03:17 Urine pH Not Reportable 10/12/24 03:17 Ur Specific [place] 1.022 (1.000-1.030) 10/12/24 03:17 Urine Protein Not Reportable 10/12/24 03:17 Urine Glucose (UA) Not Reportable 10/12/24 03:17 Urine Ketones Not Reportable 10/12/24 03:17 Urine Blood Not Reportable 10/12/24 03:17 Urine Nitrite Not Reportable 10/12/24 03:17 Urine Bilirubin Not Reportable 10/12/24 03:17 Urine Urobilinogen Not Reportable 10/12/24 03:17 Ur Leukocyte Esterase Not Reportable 10/12/24 03:17 Urine RBC >20 /hpf (0-2) H 10/12/24 03:17 Urine WBC >50 /hpf (0-5) H 10/12/24 03:17 Ur Epithelial Cells 6-10 /hpf (0-2) H 10/12/24 03:17 Urine Bacteria None Seen (None Seen) 10/12/24 03:17 Impressions Chest X-Ray 10/11/24 15:43 XR chest 1V portable HISTORY: 64 years-old Male pain/hiccups acute chest pain COMPARISON: 12/08/2023 TECHNIQUE: AP view of the chest FINDINGS: Cardiac silhouette is normal in size. Mild subsegmental left basilar scarring versus atelectasis. No pneumothorax or pleural effusion. Bones appear grossly intact. IMPRESSION: No acute process. ACT 112: Negative or not required by law. The above report was generated using voice recognition software. It may contain grammatical, syntax or spelling errors. Electronically signed by: Evelio Alford M.D. 10/11/2024 4:13 PM Abdomen/Pelvis CT 10/11/24 21:39 Exam(s): CT ABDOMEN + PELVIS Without Contrast EXAM: CT Abdomen and Pelvis Without Intravenous Contrast CLINICAL HISTORY: Reason for exam: abd pain. TECHNIQUE: Axial computed tomography images of the abdomen and pelvis without intravenous contrast. CTDI is 25 mGy and DLP is 1290 mGy-cm. Automated exposure control was utilized for the study. A dose lowering technique was utilized adhering to the principles of ALARA. COMPARISON: No relevant prior studies available. FINDINGS: Limitations: Limited evaluation in the absence of contrast. Lung bases: Mild dependent scarring at the lung bases. No consolidation. ABDOMEN: Liver: Unremarkable. Gallbladder and bile ducts: Unremarkable. No calcified stones. No ductal dilation. Pancreas: Unremarkable. No ductal dilation. Spleen: Unremarkable. No splenomegaly. Adrenals: Unremarkable. No mass. Kidneys and ureters: Patient status post right double-J ureteral stent with proximal coil in the right renal pelvis and distal coil in the bladder. Gas noted in the right renal collecting system and within the bladder which may be postprocedural in nature. Additional prominent right perinephric and periureteral stranding noted. Findings may be postprocedural in nature. Infection also possible. Stomach and bowel: Unremarkable. No obstruction. No mucosal thickening. PELVIS: Appendix: No findings to suggest acute appendicitis. Bladder: Within the bladder as described. Reproductive: Prostatic calcifications with prostatomegaly. ABDOMEN and PELVIS: Intraperitoneal space: Unremarkable. No free air. No significant fluid collection. Bones/joints: Degenerative changes in the spine. No acute fracture. No dislocation. Soft tissues: Left inguinal hernia containing fat. Umbilical hernia containing fat. Vasculature: Unremarkable. No abdominal aortic aneurysm. Lymph nodes: Unremarkable. No enlarged lymph nodes. IMPRESSION: 1. Limited evaluation in the absence of contrast. 2. Patient status post right double-J ureteral stent with proximal coil in the right renal pelvis and distal coil in the bladder. Gas noted in the right renal collecting system and within the bladder which may be postprocedural in nature. Additional prominent right perinephric and periureteral stranding noted. Findings may be postprocedural in nature. Infection also possible. 3. No other acute findings. 4. Incidental findings as described. Electronically signed by: Vamsi Mcgregor MD 10/12/24 03:04 AM (4) Migraine Intractability: intractable Migraine type: unspecified Status migrainosus presence: with status migrainosus Qualified Code(s): G43.911 - Migraine, unspecified, intractable, with status migrainosus
--- NOTE | 2024-10-13 21:11 | Communication Note ---
Date of Service: October 13, 2024 Overnight issues 10/13, 9 PM Patient SBP 90s as per RN. Urine color of cola as per RN. Usual lower abdominal pain with hiccups as per RN. Hemoglobin 10.6 from 11.6 this a.m. from 15 (10/11) Platelets 129 AP Hypotension Progressive anemia from GI bleed Thrombocytopenia IVF Hold heparin subcu for now 10/14, 355 AM Patient asking for Imitrex for persistent migraine headache. Multiple meds given during admission for protracted migraine headache. AP Headache Thrombocytopenia Rule out ICH CT head Explained to patient need to rule out ICH given protracted migraine headache and thrombocytopenia. Patient refuses imaging for now.
[2024-10-13] MEDS: LACTATED RINGER'S 1,000 ML IV ONE (21:26)
[2024-10-13 22:02] LABS: Basophils # (auto) 0.06 K/uL (0.00-0.20); Basophils % (auto) 0.7 %; Eosinophils # (auto) 0.34 K/uL (0.00-0.50); Eosinophils % (auto) 3.7 %; Hematocrit (blood only) 33.7 % (42.0-52.0); Hemoglobin 10.6 g/dl (14.0-18.0); Immature Granulocytes # (auto) 0.03 K/uL (0.01-0.20); Immature Granulocytes % (auto) 0.3 %; Lymphocytes # (auto) 1.73 K/uL (1.20-3.40); Mean Corpuscular Hemoglobin 30.2 pg (25.0-34.0); Mean Corpuscular Hgb Conc 31.5 g/dL (32.0-36.0); Mean Platelet Volume 10.8 fL (9.4-12.4); Monocytes % (auto) 9.9 %; Neutrophils # (auto) 6.03 K/uL (1.40-6.50); Neutrophils % (auto) 66.4 %; Platelet Count 129 K/uL (130-400); RDW Coefficient of Variation 13.6 % (11.5-14.5); RDW Standard Deviation 48.3 fL (36.4-46.3); Red Blood Count 3.51 M/uL (4.70-6.10); White Blood Count 9.09 K/ul (4.8-10.8)
[2024-10-14] MEDS: KETOROLAC TROMETHAMINE 15 MG/ML VIAL IV ONE (04:15)
[2024-10-14 06:27] LABS: Basophils # (auto) 0.04 K/uL (0.00-0.20); Basophils % (auto) 0.5 %; Eosinophils # (auto) 0.21 K/uL (0.00-0.50); Eosinophils % (auto) 2.5 %; Hematocrit (blood only) 31.9 % (42.0-52.0); Hemoglobin 10.2 g/dl (14.0-18.0); Immature Granulocytes # (auto) 0.03 K/uL (0.01-0.20); Immature Granulocytes % (auto) 0.4 %; Lymphocytes # (auto) 0.92 K/uL (1.20-3.40); Lymphocytes % (auto) 10.8 %; Mean Corpuscular Volume 93.8 fL (80.0-100.0); Mean Platelet Volume 10.8 fL (9.4-12.4); Monocytes # (auto) 0.64 K/uL (0.11-0.59); Monocytes % (auto) 7.5 %; Neutrophils # (auto) 6.68 K/uL (1.40-6.50); Neutrophils % (auto) 78.3 %; Platelet Count 133 K/uL (130-400); RDW Coefficient of Variation 13.3 % (11.5-14.5); RDW Standard Deviation 45.7 fL (36.4-46.3); White Blood Count 8.52 K/ul (4.8-10.8)
[2024-10-14 06:47] LABS: Albumin Globulin Ratio 1.2 (0.9-2); Albumin Level 2.8 gm/dl (3.4-5.0); BUN Creatinine Ratio 16.3 (10-20); Bilirubin,Total 0.6 mg/dl (0.2-1.0); Calcium 8.2 mg/dl (8.6-10.3); Creatinine Clr Calc Pharmacy 56.1 ml/min; Globulin 2.4 gm/dl (2.5-4.0); Potassium 4.1 mmol/L (3.5-5.1); Total Protein 5.2 gm/dl (6.0-8.3)
[2024-10-14] MEDS: LACTATED RINGER'S 1,000 ML IV SCH (10:56)
--- NOTE | 2024-10-14 11:13 | Hospitalist Progress Note ---
Date of Service October 14, 2024 Assessment & Plan (1) History of ureteroscopy: (2) S/P ureteral stent placement: (3) BPH w urinary obs/LUTS: (4) Migraine: (5) RANDEE (acute kidney injury): (6) Hiccups: Plan 64-year-old male with a past medical history of BPH, kidney stones, migraine presented to the ED on 10/11/2024 with complaints of hiccups and right flank pain Assessment and plan: Nephrolithiasis S/p cystoscopy with retrograde pyelogram, ureteral dilation/insertion of R stent catheter 10/10 Postop hiccups Patient been having hiccups that exacerbate right flank pain since procedure Seen by urology, no acute intervention needed, stent in appropriate position Urine culture negative, will complete IV Rocephin course of 5 days on 10/16 Baclofen initiated on 10/13 with improvement in hiccups, consider gabapentin if further intervention needed Urology will set up outpatient stent removal 10/14: SBP's in the 90s overnight, stable this a.m. Continue IV fluids Hemoglobin slowly trending down, could be dilutional with IV fluids Recheck H/H at 12 PM, DVT prophylaxis remains on hold for now Hx BPH: AKInow resolved Continue Flomax, continue to monitor daily CMP Migraine: On Emgality monthly injections for prophylaxis Received Imitrex/Reglan with relief, reports improvement this morning Disposition: Cleared by urology, plan for ADC in the next 24-48 hours once pain is controlled/urine culture results A total of 45 minutes was spent on chart review/facilitating plan of care/discussion with consultants/reviewing diagnostic data Full code DVT prophylaxis: Heparin subcu Admission and Anticipated Discharge Date Admission Date: October 11, 2024 Supervising Physician Co-Signing Physician Notes Patient is seen and examined at bedside. States having migraine. Abdominal pain improving. Hiccups less frequent as well. Discussed with patient's at bedside On exam patient is moderately built and nourished, mild distress secondary to hiccups, normocephalic atraumatic, normal breath sounds, clear to auscultation, abdomen soft, bowel sounds heard, alert, awake, oriented, grossly no focal deficits. Acute kidney injury Post op hiccups Nephrolithiasis Rule out pyelonephritis Abdominal pain likely multifactorial: Musculoskeletal due to hiccups, possible ureteral stent pain -Patient had cystoscopy, right ureteral nephroscopy, retrograde pyelogram, ureteral dilatation, laser destruction of stone and extraction and insertion of stent by Dr. Palacio on 10/10/2024 -Urine culture negative to date -CT abdomen showed prominent right perinephric and periureteral stranding Appreciate urology input Empirically on Rocephin Trial of baclofen, Reglan, gabapentin, Ativan for hiccups Monitor renal function Received IV fluids Continue current management Renal function stable Received sumatriptan Advance diet as tolerated Requested urology to reevaluate I personally interviewed and examined at bedside. Patient's care is coordinated with Bran Dunaway PA-C. I have reviewed the advanced practitioner's documentation, and I agree with plan of care. Please refer to the documentation above for details of patient's presentation and for discussion of other issues. I spent a total [id number] coordinating, documenting, and providing care for this patient excluding time spent in the performance of separately billed services. Subjective Patient seen and examined. No apparent distress. Reports his pain is better controlled today. His hiccups have also improved. He denies any chest pain/shortness of breath. Reports no issues voiding. Reports baclofen helped with hiccups. Review of Systems Review of Systems: All systems reviewed & are unremarkable except as noted in HPI & below Physical Exam Constitutional: WD/WN, vitals as above Eyes: PERRL, conjunctivae normal, anicteric sclerae ENMT: external ear and nose normal, oropharynx normal Neck: trachea midline, no thyromegaly Respiratory: normal respiratory effort, lungs clear to auscultation Cardiovascular: RRR, no murmur, no edema Gastrointestinal (Abdomen): normal bowel sounds, soft, nontender, no hepatosplenomegaly (Claribel-colored urine) Musculoskeletal: no cyanosis or clubbing, extremities motor strength 5/5 Skin: no rashes, warm and dry Neurologic: PERRL, EOMI, accommodation nl, no face palsy, no dysarthria Lymphatic: no cervical or axillary lymphadenopathy Results & Data Results & Data Vital Signs (Past 12 Hours) Vital Signs Temp Pulse Resp BP Pulse Ox O2 Del Method 10/14/24 07:16 36.8 C 90 16 107/53 L 90 Room Air (4) Migraine Intractability: intractable Migraine type: unspecified Status migrainosus presence: with status migrainosus Qualified Code(s): G43.911 - Migraine, unspecified, intractable, with status migrainosus
[2024-10-14] MEDS ORDERED: SUMAtriptan succinate 100 MG TAB PO ONE (12:08)
[2024-10-14 12:54] LABS: Hematocrit (blood only) 32.3 % (42.0-52.0); Hemoglobin 10.4 g/dl (14.0-18.0)
[2024-10-14] MEDS ORDERED: PHENAZOPYRIDINE HCL 200 MG TAB PO PRN (16:31)
[2024-10-14] MEDS: HYDROmorphone INJ 0.5 MG/0.5 ML SYR IV PRN (17:14)
[2024-10-14] MEDS: SUMAtriptan succinate 100 MG TAB PO PRN (17:15)
[2024-10-15 07:42] LABS: Hematocrit (blood only) 30.9 % (42.0-52.0); Hemoglobin 10.1 g/dl (14.0-18.0); Mean Corpuscular Hemoglobin 30.3 pg (25.0-34.0); Mean Corpuscular Hgb Conc 32.7 g/dL (32.0-36.0); Mean Corpuscular Volume 92.8 fL (80.0-100.0); Mean Platelet Volume 10.5 fL (9.4-12.4); Platelet Count 170 K/uL (130-400); RDW Coefficient of Variation 13.3 % (11.5-14.5); RDW Standard Deviation 45.1 fL (36.4-46.3); Red Blood Count 3.33 M/uL (4.70-6.10); White Blood Count 8.24 K/ul (4.8-10.8)
[2024-10-15] MEDS: bisacodyL 5 MG TABEC PO PRN (07:59)
[2024-10-15 08:05] LABS: Calcium 8.3 mg/dl (8.6-10.3); Creatinine Clr Calc Pharmacy 79.1 ml/min; Magnesium 1.7 mg/dl (1.7-2.4); Potassium 3.9 mmol/L (3.5-5.1)
--- NOTE | 2024-10-15 11:07 | Hospitalist Progress Note ---
Date of Service October 15, 2024 Assessment & Plan (1) History of ureteroscopy: (2) S/P ureteral stent placement: (3) BPH w urinary obs/LUTS: (4) Migraine: (5) RANDEE (acute kidney injury): (6) Hiccups: Plan 64-year-old male with a past medical history of BPH, kidney stones, migraine presented to the ED on 10/11/2024 with complaints of hiccups and right flank pain Assessment and plan: Nephrolithiasis S/p cystoscopy with retrograde pyelogram, ureteral dilation/insertion of R stent catheter 10/10 Postop hiccups Patient been having hiccups that exacerbate right flank pain since procedure Seen by urology, no acute intervention needed, stent in appropriate position Urine culture negative, will complete IV Rocephin course of 5 days on 10/16 Baclofen initiated on 10/13 with improvement in hiccups, consider gabapentin if further intervention needed Urology will set up outpatient stent removal 10/14: SBP's in the 90s overnight, stable this a.m. Continue IV fluids Hemoglobin slowly trending down but stable, could be dilutional with IV fluids 10/15: Attempt to wean Dilaudid and utilize Oxy more, will increase gabapentin to 200 mg requesting stent removal to be completed in the hospital today, per urology earliest appt is 10/22 in office. Hx BPH: AKInow resolved Continue Flomax, continue to monitor daily CMP Migraine: On Emgality monthly injections for prophylaxis Received Imitrex/Reglan with relief, reports improvement this morning Disposition: Cleared by urology, plan for ADC in the next 24-48 hours once pain is controlled A total of 45 minutes was spent on chart review/facilitating plan of care/discussion with consultants/reviewing diagnostic data Full code DVT prophylaxis: Heparin subcu Admission and Anticipated Discharge Date Admission Date: October 11, 2024 Supervising Physician Co-Signing Physician Notes Patient is seen and examined at bedside. Headache, abdominal discomfort continues to improve. Still has hiccups intermittently. Reports constipation On exam patient is moderately built and nourished, mild distress secondary to hiccups, normocephalic atraumatic, normal breath sounds, clear to auscultation, abdomen soft, bowel sounds heard, alert, awake, oriented, grossly no focal deficits. Acute kidney injury Post op hiccups Nephrolithiasis Rule out pyelonephritis Abdominal pain likely multifactorial: Musculoskeletal due to hiccups, possible ureteral stent pain -Patient had cystoscopy, right ureteral nephroscopy, retrograde pyelogram, ureteral dilatation, laser destruction of stone and extraction and insertion of stent by Dr. Palacio on 10/10/2024 -Urine culture negative -CT abdomen showed prominent right perinephric and periureteral stranding Appreciate urology input Empirically on Rocephin plan to complete 5-day course given recent procedure Trial of baclofen, Reglan, gabapentin, Ativan for hiccups Monitor renal function Received IV fluids Advance diet as tolerated Renal function back to baseline Wean off of pain medications as able Will need follow-up with urology as outpatient Bowel regimen to help with constipation I personally interviewed and examined at bedside. Patient's care is coordinated with Bran DODSON. I have reviewed the advanced practitioner's documentation, and I agree with plan of care. Please refer to the documentation above for details of patient's presentation and for discussion of other issues. I spent a total [id number] coordinating, documenting, and providing care for this patient excluding time spent in the performance of separately billed services. Subjective Patient seen and examined. No apparent distress. Reports his pain is only improving when he gets Dilaudid. Reports his hiccups are worsening with walking and movement. Requesting for stent removal as soon as possible in the hospital. Review of Systems Review of Systems: All systems reviewed & are unremarkable except as noted in HPI & below Physical Exam Constitutional: WD/WN, vitals as above Eyes: PERRL, conjunctivae normal, anicteric sclerae ENMT: external ear and nose normal, oropharynx normal Neck: trachea midline, no thyromegaly Respiratory: normal respiratory effort, lungs clear to auscultation Cardiovascular: RRR, no murmur, no edema Gastrointestinal (Abdomen): normal bowel sounds, soft, nontender, no hepatosplenomegaly (Claribel-colored urine) Musculoskeletal: no cyanosis or clubbing, extremities motor strength 5/5 Skin: no rashes, warm and dry Neurologic: PERRL, EOMI, accommodation nl, no face palsy, no dysarthria Lymphatic: no cervical or axillary lymphadenopathy Results & Data Results & Data Vital Signs (Past 12 Hours) Vital Signs Temp Pulse Resp BP Pulse Ox O2 Del Method 10/15/24 07:36 37.1 C 122 H 15 128/74 90 Room Air (4) Migraine Intractability: intractable Migraine type: unspecified Status migrainosus presence: with status migrainosus Qualified Code(s): G43.911 - Migraine, unspecified, intractable, with status migrainosus
[2024-10-15] MEDS: DOCUSATE SODIUM 100 MG CAP PO SCH (13:27)
[2024-10-15] MEDS: LACTATED RINGER'S 1,000 ML IV SCH (13:29)
[2024-10-15] MEDS: GABAPENTIN 100 MG CAP PO SCH (13:31)
[2024-10-15] MEDS: POLYETHYLENE (MIRALAX) 17 GM PACK PO SCH (20:23)
[2024-10-16 07:10] LABS: Basophils # (auto) 0.05 K/uL (0.00-0.20); Basophils % (auto) 0.8 %; Eosinophils # (auto) 0.38 K/uL (0.00-0.50); Eosinophils % (auto) 5.9 %; Hematocrit (blood only) 30.8 % (42.0-52.0); Hemoglobin 9.9 g/dl (14.0-18.0); Immature Granulocytes # (auto) 0.02 K/uL (0.01-0.20); Immature Granulocytes % (auto) 0.3 %; Lymphocytes # (auto) 1.46 K/uL (1.20-3.40); Lymphocytes % (auto) 22.8 %; Mean Corpuscular Hgb Conc 32.1 g/dL (32.0-36.0); Mean Corpuscular Volume 93.3 fL (80.0-100.0); Mean Platelet Volume 10.3 fL (9.4-12.4); Monocytes % (auto) 10.9 %; Neutrophils # (auto) 3.79 K/uL (1.40-6.50); Neutrophils % (auto) 59.3 %; Platelet Count 198 K/uL (130-400); RDW Coefficient of Variation 13.4 % (11.5-14.5); RDW Standard Deviation 45.7 fL (36.4-46.3)
[2024-10-16 07:29] LABS: Albumin Globulin Ratio 1.1 (0.9-2); BUN Creatinine Ratio 11.2 (10-20); Bilirubin,Total 0.5 mg/dl (0.2-1.0); Calcium 8.8 mg/dl (8.6-10.3); Creatinine Clr Calc Pharmacy 63.3 ml/min; Globulin 2.7 gm/dl (2.5-4.0); Potassium 4.2 mmol/L (3.5-5.1); Total Protein 5.7 gm/dl (6.0-8.3)
[2024-10-16 07:46] VITALS: RESP 18; TEMP 98.1; O2SAT 94
--- NOTE | 2024-10-16 08:05 | Discharge Summary ---
Date of Service October 16, 2024 Admission HPI Per Admitting Provider Patient is 64 year old male with PMH BPH, elevated PSA, kidney stones, migraine VILLALBA on Emgality presented to ER with c/o hiccups and right flank pain. On 10/10/2024 s/p cystoscopy, right ureteronephroscopy, laser destruction stone insertion stent by Dr. Palacio. Patient states postop had hiccups which caused increased right flank pain. He was also having dysuria. Patient reports discharged home. He reports hiccups continued and every time he hiccups it causes sharp pain to right flank and right lower quadrant pain and still having dysuria. Reports pain not controlled with oxycodone. Patient states when he hiccups so many times he feels like he can't catch his breath. He reports hematuria has started to slow since yesterday. Patient reports having chills but did not recorded temperature at home.Reports is drinking fluids however has not been eating past 24 hours. States nausea without vomiting. Per outpatient chart review had telemedicine PCP visit on 09/23/24 for cough x 2 weeks and was treated with prednisone taper in which he reports cough improved. Denies fever/chills, diaphoresis, diarrhea, VILLALBA, dizziness, CP, palpitations, rhinorrhea, extremity weakness, extremity edema, rashes. Admission Exam Per Admitting Provider General: somewhat anxious appearing, WDWN Head: normocephalic, atraumatic Eyes: PERRL, EOM's intact, conjunctiva non-injected, anicteric ENT: normal inspection external ears, nose, mucous membranes mildly dry Neck: supple, trachea midline Lungs: clear, no respiratory distress, no wheezing/rhonchi/rales. no hiccpups at time of exam CV: RRR, no murmur, no pretibial edema Abd: normal BS, soft,+tenderness palpation right flank, RLQ Ext: no cyanosis, no calf tenderness Neuro: A&O x 3, no focal deficits noted, somewhat anxious affect Skin: warm, sweaty Principal Diagnosis Acute renal failure Post op hiccups Discharge Exam Neuro: AAOx4, PERRLA, no aphagia, memory changes, CNII-XII grossly intact HEENT: head normocephalic, moist mucus membranes CV: S1/S2, (-) M/G/R, (-) edema, cap refill < 3 seconds Resp: Lungs CTA in all cespedes. On RA GI: Abdomen S/NT/ND, Ax4 bowel sounds, (-) CVA tenderness Musculoskeletal: 5/5 B/L UE strength, 5/5 B/L LE strength. No gait disturbance Skin: (-) rashes , (-) erythema. Psych: euthymic mood Discharge Data Allergies Allergy/AdvReac Type Severity Reaction Status Date / Time No Known Allergies Allergy Verified 10/10/24 10:31 Consultations 10/11/24 20:29 ED Decision to Admit Stat 10/12/24 03:25 Consult Urology Routine Ordered Studies 10/11/24 21:39 CT Abd and Pelvis [CT abd pelvis wo con] Stat Hospital Course (1) RANDEE (acute kidney injury): (2) Nephrolithiasis: (3) S/P ureteral stent placement: Plan Mr. Pino is a 64 year old male with PMH BPH, elevated PSA, kidney stones, migraine VILLALBA on Emgality presented to ER with c/o hiccups and right flank pain. On 10/10/2024 s/p cystoscopy, right ureteronephroscopy, laser destruction stone insertion stent by Dr. Palacio. Patient states postop had hiccups which caused increased right flank pain. He was also having dysuria. Patient reports he was discharged home. He reports hiccups continued and every time he hiccups it causes sharp pain to right flank and right lower quadrant pain and still having dysuria. He was admitted to the [facility] on 10/11/24 with worsening right flank pain and hiccups after you underwent a cystoscopy, right ureteronephroscopy with stent insertion under the care of Dr. Palacio on 10/10/24. He had an abdomen/pelvis CT performed on 10/11 that results indicated: Patient status post right double-J ureteral stent with proximal coil in the right renal pelvis and distal coil in the bladder. Gas noted in the right renal collecting system and within the bladder which may be postprocedural in nature. Additional prominent right perinephric and periureteral stranding noted. No other acute findings. He was given medications for pain control and were evaluated by urology. No urologic intervention necessary at this time. Urology reviewed the CT scan and the stent is appropriately positioned. Air was noted in the collecting system and bladder given recent instrumentation which is normal post procedure. He was started on an antibiotic for possible complicated UTI. The urine culture was negative for bacterial growth and the antibiotics were discontinued. He was started on Gabapentin for his hiccups and will follow up with his PCP and Urology upon DC. He also had RANDEE with elevated Cr of 2.06 on admission. This improved with m anagement and Cr is down to 1.25 today Total Time Total Time Spent Total Time Spent (In Minutes): I spent a total of 56 minutes coordinating, documenting, and providing care for this patient excluding time spent in the performance of separately billed services. All of the aforementioned completed while collaborating with the assigned attending physician for a full treatment plan. Please see their addendum for further details. Discharge Plan Discharge Items Patient Disposition: Home - Self-Care Reason For Visit: ARF Discharge Diagnosis: Acute renal failure Post op hiccups Activity: Resume your previous activity Non-emergency contact: Primary Care Provider and Urologist Call non-emergency contact if: you have any medication questions, your symptoms worsen, your pain is not controlled and your temperature is above 101 Follow-up/Referrals: Xavi Perkins MD [Primary Care Provider] - 10/23/24 10:00 am ([address] [place] [id number]) Diet: Heart Healthy Addtl Attending Provider Instructions: Delgado Ferro were admitted to the [facility] on 10/11/24 with worsening right flank pain and hiccups after you underwent a cystoscopy, right ureteronephroscopy with stent insertion under the care of Dr. Palacio on 09/27 03/20. You had an abdomen/pelvis CT performed on 10/11 that results indicated: Patient status post right double-J ureteral stent with proximal coil in the right renal pelvis and distal coil in the bladder. Gas noted in the right renal collecting system and within the bladder which may be postprocedural in nature. Additional prominent right perinephric and periureteral stranding noted. No other acute findings. You were given medications for pain control and were evaluated by urology. No urologic intervention necessary at this time. Urology reviewed the CT scan and the stent is appropriately positioned. Air was noted in the collecting system and bladder given recent instrumentation which is normal post procedure. Started on an antibiotic for possible complicated UTI. The urine culture was negative for bacterial growth. MEDICATION CHANGES: You will continue your home medications as prescribed. You will be discharged on Gabapentin 200 mg by mouth three times daily for a few additional days to continue to assist with your hiccup symptoms if they continue. You will continue taking your Flomax. You can take Tylenol 500 mg by mouth as needed every 6 hours for pain control. RECOMMENDATIONS FOR FOLLOW-UP: 1. Follow up with your PCP, Dr. Perkins on Tuesday 10/23 @ 10:[address] [place] [address] in [place]. 2. Urology has arranged a follow up appointment with them on Monday 10/29 and Urology will contact you if this can be moved to a sooner date. Their office reji l contact you directly. OTHER INSTRUCTIONS: Seek medical attention if you have: * temperature above 101 * chest pain or trouble breathing * abdominal pain, nausea, vomiting * diarrhea, dark stools or bloody stools * any unanswered questions or concerns Call 911 if symptoms are severe. Please take good care of yourself. It has been a pleasure taking care of you. Please take care of yourself. If you have any questions regarding your recent hospitalization please contact [facility] and request [facility] @ [phone]. Pending Studies at Discharge: No Stand-Alone Forms: [facility], Smoking Cessation Medications and DC Order Prescriptions: New gabapentin 100 mg Capsule 200 mg PO TID 3 Days Qty: 18 0RF Continued sumatriptan succinate [Imitrex] 100 mg tablet 100 mg PO DAILY PRN (Reason: Migraine Headache) Rx Instructions: may repeat in 2 hours if ineffective Emgality Pen 120 mg/mL pen injector 120 mg SUBCUT MONTHLY Rx Instructions: USUALLY THE 1ST OF THE MONTH omeprazole 40 mg capsule,delayed release(DR/EC) 40 mg PO DAILYBB aspirin 325 mg Tablet 325 mg PO DAILY tamsulosin [Flomax] 0.4 mg capsule 0.4 mg PO HS Saccharomyces boulardii [Florastor] 250 mg capsule 250 mg PO DAILY PRN (Reason: Upset Stomach) Rx Instructions: swallow whole Discontinued promethazine-DM 6.25-15 mg/5 mL syrup 5 ml PO QID PRN (Reason: Cough) phenazopyridine [Pyridium] 200 mg tablet 200 mg PO Q8H PRN (Reason: pain) Qty: 10 0RF oxycodone-acetaminophen [Percocet] 7.5-325 mg tablet 1 tab PO Q8H PRN (Reason: pain) 3 Days Qty: 7 0RF ciprofloxacin HCl [Cipro] 500 mg tablet 500 mg PO Q12H Qty: 6 0RF Discharge Orders: Discharge Order (Routine); Ordered 10/16/24 Ordered By: Chelsi Mathews/Other Patient Handouts: Having a Ureteral Stent Admission Data Admit Date/Time: 10/11/24 21:05 Attending Provider: Angela Zimmerman I. Admit Provider: Sandeep Bearden Primary Care Provider: Xavi Perkins Other Providers: Sandeep Bearden; William Bonner; Mi Lambert; Jeff Palacio; Jess Guerrier; Awilda Danielson; Stef Cohen; Radha Acosta; Jim Perez; Tin Dunn; Michel Acosta; Raj Jasmine Other Interventions: Discharge Summary Assessment (RN) Last Done: 10/16/24 11:44 Supervising Physician Co-Signing Physician Notes Patient seen and examined Agree with plans as detailed by Chelsi DODSON
[2024-10-16 11:45] VITALS: BP 111/75; PULSE 89
== END 2024-10-16 12:21 | disposition home or self-care (01) | DRG 920 ==
LOC: ED 15:01 → SUATTDRO 21:05 → 3W 21:05